=== PATIENT | female | born 1995 | race Caucasian/White ===

== ENCOUNTER 2020-05-16 21:51 | Emergency (ER) | payer OTHER ==
[~2020-05-16] VITALS: Ht 162.6 cm; Wt 85.1 kg
[2020-05-16 21:53] VITALS: BP 108/58
[2020-05-16] MEDS ORDERED: cefTRIAXone SOD 250MG VIAL (J0696 PER 250MG) IM ONE (22:45)
[2020-05-16] MEDS ORDERED: LIDOCAINE 1% SDV 5ML VIAL DILUENT ONE (22:45)
[2020-05-16] MEDS ORDERED: AZITHROMYCIN 250MG TABLET PO ONE (22:45)
[2020-05-17 00:02] LABS: HCG, SERUM QUALITATIVE NEGATIVE (NEGATIVE)
[2020-05-17 00:39] LABS: CHLAMYDIA DNA AMPLIFICATION NEGATIVE (NEGATIVE); GC DNA AMPLIFICATION NEGATIVE (NEGATIVE)
[2020-05-17 13:41] LABS: HIV 1&2 SCREEN CENTAUR NEGATIVE (NEGATIVE)
--- NOTE | 2020-05-17 21:28 | ED PDOC ---
Post-Departure Follow-Up called patient with results, she had no questions. 05/17/205 ROCKY ALLEN PA-C May 17, 2020 21:28
[2020-05-18 11:01] LABS: HEPATITIS B SURFACE ANTIBODY NEGATIVE (POSITIVE); HEPATITIS B SURFACE ANTIGEN NEGATIVE (NEGATIVE); HEPATITIS C VIRUS ABY INDEX 0.2 INDEX (<0.8)
== END 2020-05-16 23:42 | disposition home or self-care (01) ==
LOC: M ED 21:51
DX: Z20.2 Contact with and (suspected) exposure to infections with a predominantly sexual mode of transmission (principal); N72 Inflammatory disease of cervix uteri; Z97.5 Presence of (intrauterine) contraceptive device; F17.210 Nicotine dependence, cigarettes, uncomplicated
CPT/HCPCS: 36415; 84703; 86706; 86780; 86803; 87210; 87340; 87389; 87661; 96372; 99282; J0696

== ENCOUNTER 2024-08-14 22:46 | Emergency (ER) | payer MEDICAID, OTHER, SELFPAY ==
[~2024-08-14] VITALS: Ht 165.1 cm; Wt 119.5 kg
[2024-08-14 22:56] VITALS: TEMP 98.1
[2024-08-15 03:30] VITALS: BP 118/68
[2024-08-15] MEDS: LIDOCAINE 2% MDV 20ML VIAL SC ONE (04:00)
[2024-08-15 05:00] VITALS: O2SAT 98
[2024-08-15] MEDS: BOOSTRIX VACCINE (TETANUS/DIPHTH/ACEL. PERTUSSIS) 0.5ML SYR IM.IMMUN ONE (05:08)
[2024-08-15] MEDS: NEOSPORIN OINT 0.9 GM PKT TOP ONE (05:08)
== END 2024-08-15 05:10 | disposition home or self-care (01) ==
LOC: M ED 22:46 → EDBD 22:46 → M ED 08-15 05:10
DX: S01.111A Laceration without foreign body of right eyelid and periocular area, initial encounter (principal); Y92.019 Unspecified place in single-family (private) house as the place of occurrence of the external cause; Y93.9 Activity, unspecified; Y99.9 Unspecified external cause status; W19.XXXA Unspecified fall, initial encounter; F10.10 Alcohol abuse, uncomplicated; Z23 Encounter for immunization